=== PATIENT | male | born 2000 | race Caucasian/White ===

== ENCOUNTER 2021-04-13 08:32 | Emergency (ER) | payer OTHER ==
[2021-04-13 08:39] VITALS: TEMP 97; BMI 21.7
[2021-04-13] MEDS ORDERED: FAMOTIDINE 10 MG TABLET PO ONE (09:50)
[2021-04-13] MEDS ORDERED: MAG HYDROX/AL HYDROX/SIMETH 30 ML UNIT-DOSE CUP PO ONE (09:50)
[2021-04-13] MEDS ORDERED: MAG HYDROX/AL HYDROX/SIMETH 30 ML UNIT-DOSE CUP ONE (10:00)
[2021-04-13] MEDS ORDERED: FAMOTIDINE 20 MG TABLET ONE (10:00)
[2021-04-13 10:31] LABS: URINE APPEARANCE CLEAR; URINE BILIRUBIN NEGATIVE (NEGATIVE); URINE COLOR YELLOW; URINE GLUCOSE (UA) NEGATIVE (NEGATIVE); URINE KETONE NEGATIVE (NEGATIVE); URINE LEUK ESTERASE NEGATIVE (NEGATIVE); URINE NITRITE NEGATIVE (NEGATIVE); URINE PROTEIN NEGATIVE (NEGATIVE); URINE UROBILINOGEN 0.2 mg/dL (0.2-1.0)
[2021-04-13 11:52] VITALS: BP 128/68; PULSE 81
== END 2021-04-13 11:05 | disposition home or self-care (01) ==
LOC: JER 08:32
DX: K21.9 Gastro-esophageal reflux disease without esophagitis (principal)
CPT/HCPCS: 81003; 93005; 93010; 99284-25